=== PATIENT | male | born 1960 ===

== ENCOUNTER 2019-06-16 11:51 | Emergency (ER) | payer MEDICAID, OTHER ==
[~2019-06-16] VITALS: Ht 170.2 cm; Wt 106.4 kg
[2019-06-16 13:44] VITALS: BP 145/90
== END 2019-06-16 13:47 | disposition home or self-care (01) ==
LOC: ED 13:00
DX: S43.005A Unspecified dislocation of left shoulder joint, initial encounter (principal); S61.412A Laceration without foreign body of left hand, initial encounter; I10 Essential (primary) hypertension; E11.9 Type 2 diabetes mellitus without complications; Z95.1 Presence of aortocoronary bypass graft; W19.XXXA Unspecified fall, initial encounter; Y93.89 Activity, other specified; Y92.89 Other specified places as the place of occurrence of the external cause; Y99.8 Other external cause status
CPT/HCPCS: 12041; 23650; 99284; 99285